=== PATIENT | female | born 1990 | race American Indian/Alaskan Native ===

== ENCOUNTER 2017-02-17 02:17 | Emergency (ER) | payer SELFPAY ==
[2017-02-17 06:20] VITALS: BP 137/81
[2017-02-17 06:25] LABS: Bacteria,Urine 1+ /HPF (Negative); Bilirubin,Urine NEG (Negative); Blood,Urine SM (Negative); Ketones,Urine NEG (Negative); Leukocyte Esterase,Urine LG (Negative); Mucus,Urine 1+ /HPF; Nitrite,Urine NEG (Negative); Urobilinogen,Urine < 2.0 mg/dL (<2.0)
[2017-02-17] MEDS ORDERED: ROCEPHIN IM ONE (08:23)
[2017-02-17] MEDS ORDERED: ZITHROMAX PO ONE (08:23)
[2017-02-17] MEDS ORDERED: XYLOCAINE 1% MPF 5 mL INFILTRATI ONE (08:23)
--- NOTE | 2017-02-17 08:23 | Emergency Department Report ---
ED Female HPI - General Chief complaint: Urogenital-Female Stated complaint: VAGINAL PAIN/DISCHARGE Time Seen by Provider: 02/17/17 07:44 Source: patient Mode of arrival: Ambulatory Limitations: No Limitations - History of Present Illness MD Complaint: dysuria, possible STD Onset/Timin -: days(s) Location: suprapubic Radiation: suprapubic Severity: moderate Severity scale (0 -10): 3 Quality: burning Consistency: constant Improves with: none Worsens with: urination Are you Now?: No Last Menstrual Period: 02/03/17 EDC: 11/10/17 Associated Symptoms: vaginal discharge, dysuria. denies: abdominal pain, nausea /vomiting, fever/chills, headaches, loss of appetite, hematuria, rash, shortness of breath, syncope, weakness - Related Data Sexually active: Yes : 1 Para: 4 A: 3 Previous Rx's Medication Instructions Recorded Last Taken Type metroNIDAZOLE [Flagyl] 500 mg PO BID #20 tablet 01/03/14 Unknown Rx Fluconazole [Diflucan TAB] 150 mg PO ONCE #2 tablet 02/17/17 Unknown Rx metroNIDAZOLE [Flagyl] 500 mg PO Q12HR #20 tab 02/17/17 Unknown Rx Allergies Allergy/AdvReac Type Severity Reaction Status Date / Time No Known Allergies Allergy Unverified 01/02/14 22:44 ED Review of Systems ROS: Stated complaint: VAGINAL PAIN/DISCHARGE Other details as noted in HPI Constitutional: denies: chills, fever Eyes: denies: eye pain, eye discharge, vision change ENT: denies: ear pain, throat pain Respiratory: denies: cough, shortness of breath, wheezing Cardiovascular: denies: chest pain, palpitations Endocrine: no symptoms reported Gastrointestinal: denies: abdominal pain, nausea, diarrhea Genitourinary: urgency, dysuria, frequency, discharge. denies: hematuria, abnormal menses, dyspareunia Musculoskeletal: denies: back pain, joint swelling, arthralgia Skin: denies: rash, lesions Neurological: denies: headache, weakness, paresthesias Psychiatric: denies: anxiety, depression Hematological/Lymphatic: denies: easy bleeding, easy bruising ED Past Medical Hx - Past Medical History Previous Medical History?: No - Surgical History Past Surgical History?: No - Social History Smoking Status: Never Smoker Substance Use Type: Alcohol - Medications Home Medications: Home Medications Medication Instructions Recorded Confirmed Last Taken Type metroNIDAZOLE [Flagyl] 500 mg PO BID #20 tablet 01/03/14 Unknown Rx Fluconazole [Diflucan TAB] 150 mg PO ONCE #2 tablet 02/17/17 Unknown Rx metroNIDAZOLE [Flagyl] 500 mg PO Q12HR #20 tab 02/17/17 Unknown Rx ED Physical Exam - General Limitations: No Limitations General appearance: alert, in no apparent distress - Head Head exam: Present: atraumatic, normocephalic - Eye Eye exam: Present: normal appearance - ENT ENT exam: Present: mucous membranes moist - Neck Neck exam: Present: normal inspection - Respiratory Respiratory exam: Present: normal lung sounds bilaterally. Absent: respiratory distress - Cardiovascular Cardiovascular Exam: Present: regular rate, normal rhythm. Absent: systolic murmur, diastolic murmur, rubs, gallop - GI/Abdominal GI/Abdominal exam: Present: soft, normal bowel sounds. Absent: distended, tenderness, guarding, rebound, mass, bruit - External exam: Present: normal external exam. Absent: erythema, swelling, lesions, lacerations, ecchymosis, bleeding Speculum exam: Present: erythema, vaginal discharge. Absent: cervical discharge , vaginal bleeding, foreign body, tissue, laceration Bi-manual exam: Present: normal bi-manual exam - Extremities Exam Extremities exam: Present: normal inspection - Back Exam Back exam: Present: normal inspection - Neurological Exam Neurological exam: Present: alert, oriented X3 - Psychiatric Psychiatric exam: Present: normal affect, normal mood - Skin Skin exam: Present: warm, dry, intact, normal color. Absent: rash ED Course Vital Signs 02/17/17 02/17/17 02:33 06:18 Temperature 98.7 F 98.5 F Pulse Rate 88 83 Respiratory 16 18 Rate Blood Pressure 127/88 137/81 O2 Sat by Pulse 100 100 Oximetry ED Medical Decision Making - Lab Data ua UTI Laboratory Tests 02/17/17 05:04 Urine Color Yellow Urine Turbidity Cloudy Urine pH 6.0 Ur Specific [place] 1.025 Urine Protein 30 mg/dl Urine Glucose (UA) Neg Urine Ketones Neg Urine Blood Sm Urine Nitrite Neg Urine Bilirubin Neg Urine Urobilinogen < 2.0 Ur Leukocyte Esterase Lg Urine WBC (Auto) 89.0 H Urine RBC (Auto) 55.0 U Epithel Cells (Auto) 16.0 H Urine Bacteria (Auto) 1+ Urine Mucus 1+ Urine HCG, Qual Negative , hcg: neg, gc/ch pending , LMP 3 weeks ago - Medical Decision Making pt is a26 y/o aaf who present for vaginal discharge white thick malodorous, dysuria, frequency, and urgency lmp 3 weeks ago there is no vaginal bleed , vaginal lexam:mons normal, vulvovaginal normal, vaginal: moderate erythema white thick discharge malodorous, cervix closed no bleeding no discharge no vaginal trauma, ua: uti, hcg negative , Last contact 3 days which preteniated symptoms will tx for std exposure , pt will follow up with primary doctor , pt verabalized agreement and understanding with discharge plan. Critical care attestation.: If time is entered above; I have spent that time in minutes in the direct care of this critically ill patient, excluding procedure time. ED Disposition Clinical Impression: Possible exposure to STD, Cervicitis UTI (urinary tract infection) Qualifiers: Urinary tract infection type: acute cystitis Hematuria presence: without hematuria Qualified Code(s): N30.00 - Acute cystitis without hematuria Disposition: DC-01 TO HOME OR SELFCARE Is pt being admited?: No Does the pt Need Aspirin: No Condition: Good Instructions: Bacterial Vaginosis (ED), Cervicitis (ED), Sexually Transmitted Diseases (ED) Prescriptions: Fluconazole [Diflucan TAB] 150 mg PO ONCE #2 tablet metroNIDAZOLE [Flagyl] 500 mg PO Q12HR #20 tab Referrals: PRIMARY CARE, [Primary Care Provider] - 3-5 Days Forms: STI Treatment and Prevention, Work/School Release Form(ED) Time of Disposition: 08:30
== END 2017-02-17 08:47 | disposition home or self-care (01) ==
LOC: ED 02:17
DX: N72 Inflammatory disease of cervix uteri (principal); N30.00 Acute cystitis without hematuria
CPT/HCPCS: 81001; 81025; 87210; 87591; 96372; 99284; J0696